=== PATIENT | female | born 1995 | race Caucasian/White ===

== ENCOUNTER → 2019-07-04 | Outpatient (REF) | payer OTHER ==
[~2019-07-04] MED LIST: ADVI200T PO; COLA100C5 PO; LABE20TAB PO; MAPA500T2 PO; PROC10CA PO; VITAPRTA PO
[2019-07-04 22:34] LABS: CHLAMYDIA DNA AMPLIFICATION NEGATIVE (NEGATIVE); GC DNA AMPLIFICATION NEGATIVE (NEGATIVE)
== END ==
LOC: M LAB REF 09:07
PROVIDERS: ATTEND Physician Assistant
DX: R30.0 Dysuria (principal)

== ENCOUNTER → 2019-07-10 | Outpatient (REF) | payer OTHER ==
[2019-07-11 14:07] LABS: CREATININE, URINE 305.7 mg/dL (20.0-300.0)
== END ==
LOC: M LAB REF 10:06
PROVIDERS: ATTEND Family Medicine
DX: F90.0 Attention-deficit hyperactivity disorder, predominantly inattentive type (principal)

== ENCOUNTER → 2019-12-22 | Outpatient (CLI) | payer OTHER ==
--- NOTE | 2019-12-22 13:27 | REP ---
A AP view for renal calculi: Comparisons are the supine abdomen dated 06/01/[address] dated 04/13/2060. Calcifications are identified projected over the kidneys. However, the renal fossa are obscured by bowel gas bilaterally. There are pelvic calcifications, likely phleboliths. The bowel gas pattern is normal. Skeletal structures are unremarkable. Impression: No renal calculi are identified, however, the kidneys are obscured by bowel gas. Electronically Signed by Jorge Mai MD 12/22/2019 01:19 P
[2019-12-22 13:52] LABS: BASO % 0.6 % (0.0-1.0); EOS # 0.2 10^3/uL (0.0-0.5); EOS % 2.5 % (0.0-3.0); HEMOGLOBIN 13.3 g/dl (12.0-15.5); LYMPH # 2.2 10^3/uL (1.5-5.0); LYMPH % 31.4 % (24.0-44.0); MEAN CORPUSCULAR HEMOGLOBIN 30.5 pg (27.0-33.0); MEAN CORPUSCULAR HGB CONC 33.3 g/dl (32.0-36.5); MEAN CORPUSCULAR VOLUME 91.7 fl (80.0-96.0); MONO # 0.6 10^3/uL (0.0-0.8); MONO % 8.7 % (0.0-5.0); NEUTROPHILS # 3.9 10^3/uL (1.5-8.5); NEUTROPHILS % 56.8 % (36.0-66.0); PLATELET COUNT, AUTOMATED 335 10^3/uL (150-450); RED BLOOD COUNT 4.36 10^6/uL (4.00-5.40); WHITE BLOOD COUNT 6.9 10^3/uL (4.0-10.0)
== END ==
LOC: M LAB 12:33
PROVIDERS: ATTEND Nurse Practitioner Family
DX: K62.5 Hemorrhage of anus and rectum (principal)

== ENCOUNTER → 2021-06-24 | Outpatient (REF) | payer OTHER ==
[2021-06-24 17:21] LABS: HEMATOCRIT 38.9 % (36.0-47.0); HEMOGLOBIN 13.2 g/dl (12.0-15.5); MEAN CORPUSCULAR HEMOGLOBIN 31.1 pg (27.0-33.0); MEAN CORPUSCULAR HGB CONC 33.9 g/dl (32.0-36.5); MEAN CORPUSCULAR VOLUME 91.7 fl (80.0-96.0); PLATELET COUNT, AUTOMATED 311 10^3/uL (150-450); RED BLOOD COUNT 4.24 10^6/uL (4.00-5.40)
[2021-06-24 18:40] LABS: HCG, SERUM QUANTITATIVE 27680 MIU/ML; HEPATITIS B SURFACE ANTIGEN NEGATIVE (NEGATIVE); HEPATITIS C VIRUS ABY INDEX 0.1 INDEX (<0.8); HIV 1&2 SCREEN CENTAUR NEGATIVE (NEGATIVE)
== END ==
LOC: M LAB REF 16:54
PROVIDERS: ATTEND Advanced Practice Midwife
DX: Z32.01 Encounter for pregnancy test, result positive (principal); O36.80X0 Pregnancy with inconclusive fetal viability, not applicable or unspecified

== ENCOUNTER → 2021-08-04 | Outpatient (REF) | payer OTHER | LOC: M LAB REF 11:19 | PROVIDERS: ATTEND Physician Assistant | DX: R30.0 Dysuria (principal) ==

== ENCOUNTER → 2021-11-11 | Outpatient (CLI) | payer BC ==
[2021-11-11 11:50] LABS: BASO % 0.2 % (0.0-1.0); EOS # 0.1 10^3/uL (0.0-0.5); EOS % 1.1 % (0.0-3.0); HEMATOCRIT 34.7 % (36.0-47.0); HEMOGLOBIN 11.5 g/dl (12.0-15.5); LYMPH # 1.6 10^3/uL (1.5-5.0); LYMPH % 18.7 % (24.0-44.0); MEAN CORPUSCULAR HEMOGLOBIN 31.8 pg (27.0-33.0); MEAN CORPUSCULAR HGB CONC 33.1 g/dl (32.0-36.5); MEAN CORPUSCULAR VOLUME 95.9 fl (80.0-96.0); MONO # 0.5 10^3/uL (0.0-0.8); MONO % 5.6 % (2.0-8.0); NEUTROPHILS # 6.3 10^3/uL (1.5-8.5); NEUTROPHILS % 73.6 % (36.0-66.0); PLATELET COUNT, AUTOMATED 300 10^3/uL (150-450); RED BLOOD COUNT 3.62 10^6/uL (4.00-5.40); WHITE BLOOD COUNT 8.5 10^3/uL (4.0-10.0)
[2021-11-11 12:28] LABS: ALT/SGPT 15 U/L (12-78); BILIRUBIN,TOTAL 0.4 MG/DL (0.2-1.0); CREATININE FOR GFR 0.57 MG/DL (0.55-1.30); GLOMERULAR FILTRATION RATE > 60.0 (>60); GLUCOSE CHALLENGE TEST 1 HOUR 88 MG/DL (LESS THAN 140); LDH LACTATE DEHYDROGENASE 144 U/L (84-246); URIC ACID 4.3 MG/DL (2.6-6.0)
== END ==
LOC: M WUC 08:49
PROVIDERS: ATTEND Advanced Practice Midwife
DX: O09.92 Supervision of high risk pregnancy, unspecified, second trimester (principal)
CPT/HCPCS: 36415; 82247; 82565; 82950; 83615; 84450; 84460; 84550; 85025; 86850; 86901; J2790

== ENCOUNTER → 2022-01-22 | Outpatient (REF) | payer BC ==
[2022-01-22 17:11] LABS: CREATININE,RANDOM URINE 32.7 MG/DL; TOTAL PROTEIN,RANDOM URINE 13.5 MG/DL (0.0-12.0)
== END ==
LOC: M LAB REF 16:03
PROVIDERS: ATTEND Advanced Practice Midwife
DX: O09.893 Supervision of other high risk pregnancies, third trimester (principal)

== ENCOUNTER → 2022-01-23 | Outpatient (REF) | payer BC ==
[~2022-01-23] MED LIST changes: +ASPI81CH33 PO
[2022-01-23 17:46] LABS: BASO # 0.1 10^3/uL (0.0-0.2); BASO % 0.6 % (0.0-1.0); EOS # 0.1 10^3/uL (0.0-0.5); EOS % 1.6 % (0.0-3.0); HEMATOCRIT 30.9 % (36.0-47.0); HEMOGLOBIN 10.1 g/dl (12.0-15.5); LYMPH # 1.4 10^3/uL (1.5-5.0); LYMPH % 15.3 % (24.0-44.0); MEAN CORPUSCULAR HEMOGLOBIN 30.6 pg (27.0-33.0); MEAN CORPUSCULAR HGB CONC 32.7 g/dl (32.0-36.5); MEAN CORPUSCULAR VOLUME 93.6 fl (80.0-96.0); MONO # 0.8 10^3/uL (0.0-0.8); MONO % 8.6 % (2.0-8.0); NEUTROPHILS # 6.6 10^3/uL (1.5-8.5); NEUTROPHILS % 73.2 % (36.0-66.0); PLATELET COUNT, AUTOMATED 328 10^3/uL (150-450); WHITE BLOOD COUNT 8.9 10^3/uL (4.0-10.0)
[2022-01-23 18:02] LABS: ALT/SGPT 16 U/L (12-78); BILIRUBIN,TOTAL 0.5 MG/DL (0.2-1.0); CREATININE FOR GFR 0.61 MG/DL (0.55-1.30); GLOMERULAR FILTRATION RATE > 60.0 (>60); LDH LACTATE DEHYDROGENASE 192 U/L (84-246); URIC ACID 5.9 MG/DL (2.6-6.0)
== END ==
LOC: M LAB REF 16:59
PROVIDERS: ATTEND Obstetrics & Gynecology
DX: O14.93 Unspecified pre-eclampsia, third trimester (principal)

== ENCOUNTER → 2022-01-24 | Outpatient (REF) | payer BC ==
[2022-01-24 18:53] LABS: CREATININE, URINE 35.1 MG/DL; URINE TOTAL PROTEIN 9.3 MG/DL (0-12)
[2022-01-24 20:28] LABS: CREATININE 24 HOUR, URINE 1202.1 MG/24HR (600-1800); TOTAL PROTEIN 24 HOUR URINE 318.5 MG/24HR (50-150)
== END ==
LOC: M LAB REF 13:52
PROVIDERS: ATTEND Obstetrics & Gynecology
DX: O14.93 Unspecified pre-eclampsia, third trimester (principal)

== ENCOUNTER 2022-01-26 09:23 | Outpatient (CLI) | payer BC ==
[~2022-01-26] VITALS: Ht 162.6 cm; Wt 82.3 kg
[~2022-01-26 09:23] MED LIST changes: -ASPI81CH33 PO
[2022-01-26 10:02] VITALS: BP 110/64
[2022-01-26 10:11] VITALS: BP 113/77
[2022-01-26 10:36] VITALS: BP 124/67
[2022-01-26] MEDS ORDERED: FIORICET TAB PO ONE (10:45)
[2022-01-26 10:46] VITALS: BP 117/61
[2022-01-26 10:56] VITALS: BP 107/60
[2022-01-26] MEDS ORDERED: ASPI81CH33 PO (11:00)
[2022-01-26] MEDS ORDERED: HOME MED LIST COMPLETE! XX SCH (11:05)
== END 2022-01-26 12:00 | disposition home or self-care (01) ==
LOC: M LDO 09:23
PROVIDERS: ATTEND Advanced Practice Midwife
DX: O60.03 Preterm labor without delivery, third trimester (principal); O26.893 Other specified pregnancy related conditions, third trimester; R51.9 Headache, unspecified; Z87.59 Personal history of other complications of pregnancy, childbirth and the puerperium; Z3A.36 36 weeks gestation of pregnancy
CPT/HCPCS: 59025; G0378; G0463

== ENCOUNTER 2022-02-02 11:41 | Outpatient (CLI) | payer BC ==
[~2022-02-02] VITALS: Ht 162.6 cm; Wt 83.4 kg
[~2022-02-02 11:41] MED LIST changes: +ASPI81CH33 PO
[2022-02-02 12:22] VITALS: BP 113/77
[2022-02-02 12:46] VITALS: BP 106/63
[2022-02-02] MEDS ORDERED: TUMS500C PO (12:53)
[2022-02-02 13:05] VITALS: BP 126/73
[2022-02-02 13:25] VITALS: BP 112/74
== END 2022-02-02 14:12 | disposition home or self-care (01) ==
LOC: M LDO 11:41
PROVIDERS: ATTEND Advanced Practice Midwife
DX: O26.893 Other specified pregnancy related conditions, third trimester (principal); R22.0 Localized swelling, mass and lump, head; Z3A.37 37 weeks gestation of pregnancy; Z87.59 Personal history of other complications of pregnancy, childbirth and the puerperium
CPT/HCPCS: 59025; G0378; G0463

== ENCOUNTER → 2022-02-04 | Outpatient (REF) | payer BC ==
[~2022-02-04] MED LIST changes: +TUMS500C PO
[2022-02-04 13:08] LABS: CREATININE,RANDOM URINE 52.8 MG/DL; TOTAL PROTEIN,RANDOM URINE 17.6 MG/DL (0.0-12.0)
== END ==
LOC: M LAB REF 12:16
PROVIDERS: ATTEND Advanced Practice Midwife
DX: O09.893 Supervision of other high risk pregnancies, third trimester (principal)

== ENCOUNTER → 2022-07-29 | Outpatient (REF) | payer BC ==
[2022-07-29 17:25] LABS: HEMATOCRIT 40.6 % (36.0-47.0); HEMOGLOBIN 13.1 g/dl (12.0-15.5); MEAN CORPUSCULAR HGB CONC 32.3 g/dl (32.0-36.5); PLATELET COUNT, AUTOMATED 396 10^3/uL (150-450); RED BLOOD COUNT 4.23 10^6/uL (4.00-5.40); WHITE BLOOD COUNT 6.7 10^3/uL (4.0-10.0)
[2022-07-29 18:08] LABS: ALBUMIN 4.3 GM/DL (3.2-5.2); ALT/SGPT 29 U/L (12-78); BILIRUBIN,TOTAL 0.8 MG/DL (0.2-1.0); BLOOD UREA NITROGEN 14 MG/DL (7-18); CARBON DIOXIDE LEVEL 27 MEQ/L (21-32); CHLORIDE LEVEL 105 MEQ/L (98-107); CREATININE FOR GFR 0.81 MG/DL (0.55-1.30); GLOMERULAR FILTRATION RATE > 60.0 (>60); GLUCOSE, FASTING 81 MG/DL (70-100); POTASSIUM SERUM 4.2 MEQ/L (3.5-5.1); SODIUM LEVEL 138 MEQ/L (136-145); TOTAL PROTEIN 7.4 GM/DL (6.4-8.2)
== END ==
LOC: M LABWUC 16:13
PROVIDERS: ATTEND Student in an Organized Health Care Education/Training Program
DX: Z02.1 Encounter for pre-employment examination (principal)

== ENCOUNTER → 2022-12-10 | Outpatient (REF) | LOC: M LABSMTC 09:26 | PROVIDERS: ATTEND Family Medicine | DX: Z11.52 Encounter for screening for COVID-19 (principal) ==

== ENCOUNTER → 2022-12-15 | Outpatient (REF) | LOC: M LABSMTC 10:26 | PROVIDERS: ATTEND Family Medicine | DX: Z11.52 Encounter for screening for COVID-19 (principal) ==

== ENCOUNTER → 2024-03-03 | Outpatient (REF) | payer OTHER, MEDICAID | LOC: M SFHCWAGY 10:32 | PROVIDERS: ATTEND Nurse Practitioner Family | DX: Z12.4 Encounter for screening for malignant neoplasm of cervix (principal) ==

== ENCOUNTER → 2024-07-19 | Outpatient (REF) | LOC: M EMP 08:35 | PROVIDERS: ATTEND Family Medicine | DX: Z11.52 Encounter for screening for COVID-19 (principal) ==

== ENCOUNTER → 2024-08-07 | Outpatient (REF) | LOC: M EMP 08:41 | PROVIDERS: ATTEND Family Medicine | DX: Z11.52 Encounter for screening for COVID-19 (principal) ==

== ENCOUNTER 2025-01-16 09:42 | Observation (INO) | payer OTHER ==
[~2025-01-16] VITALS: Ht 162.6 cm; Wt 64.8 kg
[2025-01-16] MEDS ORDERED: ACETAMINOPHEN 325 MG TAB PO PRN (09:50)
[2025-01-16 10:45] VITALS: BP 107/68; TEMP 97.2; O2SAT 99
[2025-01-16] MEDS: LACTATED RINGER'S 1000 ML IV STA (10:57)
[2025-01-16 11:03] LABS: HEMATOCRIT 38.3 % (36.0-47.0); HEMOGLOBIN 13.2 g/dl (12.0-15.5); MEAN CORPUSCULAR HGB CONC 34.5 g/dl (32.0-36.5); MEAN CORPUSCULAR VOLUME 89.9 fl (80.0-96.0); PLATELET COUNT, AUTOMATED 348 10^3/uL (150-450); RED BLOOD COUNT 4.26 10^6/uL (4.00-5.40); WHITE BLOOD COUNT 9.8 10^3/uL (4.0-10.0)
[2025-01-16 11:31] LABS: ALBUMIN 3.8 G/DL (3.2-5.2); ALKALINE PHOSPHATASE 48 U/L (35-104); ALT/SGPT 12 U/L (7.0-40); AST/SGOT < 8 U/L (<34); BILIRUBIN,TOTAL 1.1 MG/DL (0.3-1.2); BLOOD UREA NITROGEN 8 MG/DL (9-23); CALCIUM LEVEL 9.4 MG/DL (8.5-10.1); CARBON DIOXIDE LEVEL 28 MMOL/L (20-31); CHLORIDE LEVEL 103 MMOL/L (98-107); CREATININE FOR GFR 0.67 MG/DL (0.55-1.30); GLOMERULAR FILTRATION RATE > 60.0 (>60); GLUCOSE, FASTING 106 MG/DL (60-100); POTASSIUM SERUM 3.9 MMOL/L (3.5-5.1); SODIUM LEVEL 140 MMOL/L (136-145)
[2025-01-16] MEDS: LR 1,000 ML IV SCH (12:22)
[2025-01-16] MEDS: PROMETHAZINE 25MG/ML 1ML VIAL IV PRN (13:01)
[2025-01-16] MEDS: ONDANSETRON 4MG 2ML VIAL IV PRN (17:09)
[2025-01-16 18:00] VITALS: BP 107/69; TEMP 98.9; O2SAT 100
[2025-01-16] MEDS: PANTOPRAZOLE 40MG VIAL IV SCH (18:41)
[2025-01-17 06:00] VITALS: BP 99/55; TEMP 97.8; O2SAT 98
[2025-01-17 07:19] LABS: ALBUMIN 2.8 G/DL (3.2-5.2); ALKALINE PHOSPHATASE 36 U/L (35-104); ALT/SGPT < 9 U/L (7.0-40); AST/SGOT < 8 U/L (<34); BILIRUBIN,TOTAL 0.7 MG/DL (0.3-1.2); BLOOD UREA NITROGEN 6 MG/DL (9-23); CALCIUM LEVEL 8.1 MG/DL (8.5-10.1); CARBON DIOXIDE LEVEL 26 MMOL/L (20-31); CHLORIDE LEVEL 106 MMOL/L (98-107); CREATININE FOR GFR 0.65 MG/DL (0.55-1.30); GLOMERULAR FILTRATION RATE > 60.0 (>60); GLUCOSE, FASTING 85 MG/DL (60-100); SODIUM LEVEL 139 MMOL/L (136-145); TOTAL PROTEIN 5.2 G/DL (5.7-8.2)
[2025-01-17] MEDS ORDERED: OMEP40CA4 PO (07:34)
== END 2025-01-17 08:05 | disposition home or self-care (01) ==
LOC: M OBS 10:02
PROVIDERS: ADMIT Specialist; ATTEND Specialist
DX: O21.1 Hyperemesis gravidarum with metabolic disturbance (principal); Z3A.08 8 weeks gestation of pregnancy
CPT/HCPCS: 36415; 80053; 84443; 85027; 96361; 96374; 96375; 96376; J2405; J2470; J2550

== ENCOUNTER → 2025-01-23 | Outpatient (CLI) | payer OTHER ==
[~2025-01-23] MED LIST changes: +OMEP40CA4 PO
[2025-01-23 15:00] LABS: HEMATOCRIT 37.3 % (36.0-47.0); HEMOGLOBIN 12.6 g/dl (12.0-15.5); MEAN CORPUSCULAR HEMOGLOBIN 30.7 pg (27.0-33.0); MEAN CORPUSCULAR HGB CONC 33.8 g/dl (32.0-36.5); PLATELET COUNT, AUTOMATED 348 10^3/uL (150-450); WHITE BLOOD COUNT 9.4 10^3/uL (4.0-10.0)
[2025-01-23 15:06] LABS: LDH LACTATE DEHYDROGENASE 157 U/L (120-246)
[2025-01-23 15:07] LABS: ALT/SGPT 13 U/L (7.0-40); AST/SGOT < 8 U/L (<34); BILIRUBIN,TOTAL 0.7 MG/DL (0.3-1.2); CREATININE FOR GFR 0.61 MG/DL (0.55-1.30); GLOMERULAR FILTRATION RATE > 60.0 (>60)
[2025-01-23 15:32] LABS: HIV 1&2 SCREEN NEGATIVE (NEGATIVE)
[2025-01-23 15:41] LABS: HEPATITIS C VIRUS ABY INDEX 0.11 INDEX (<0.8)
[2025-01-23 15:44] LABS: URIC ACID 4.2 MG/DL (3.1-7.8)
[2025-01-23 17:37] LABS: TOTAL PROTEIN,RANDOM URINE 15.6 MG/DL (0.0-14.0)
[2025-01-23 17:42] LABS: CREATININE,RANDOM URINE 137.5 MG/DL
[2025-01-23 18:27] LABS: Trichomonas vaginalis (AMP) NOT DETECTED (NEGATIVE)
[2025-01-23 18:51] LABS: GC DNA AMPLIFICATION NEGATIVE (NEGATIVE)
== END ==
LOC: M PLALAB 11:17
PROVIDERS: ATTEND Advanced Practice Midwife
DX: Z34.81 Encounter for supervision of other normal pregnancy, first trimester (principal)

== ENCOUNTER → 2025-02-21 | Outpatient (REF) | LOC: M EMP 08:50 | PROVIDERS: ATTEND Family Medicine | DX: Z53.9 Procedure and treatment not carried out, unspecified reason (principal) ==

== ENCOUNTER → 2025-02-22 | Outpatient (REF) | LOC: M EMP 08:26 | PROVIDERS: ATTEND Family Medicine | DX: Z01.89 Encounter for other specified special examinations (principal) ==

== ENCOUNTER → 2025-03-27 | Outpatient (CLI) | payer OTHER | LOC: M WHC 06:37 | PROVIDERS: ATTEND Advanced Practice Midwife | DX: Z34.82 Encounter for supervision of other normal pregnancy, second trimester (principal); Z3A.19 19 weeks gestation of pregnancy ==

== ENCOUNTER → 2025-07-10 | Outpatient (CLI) | payer OTHER ==
[2025-07-10 16:08] LABS: PLATELET COUNT, AUTOMATED 321 10^3/uL (150-450)
[2025-07-10 16:18] LABS: TOTAL PROTEIN,RANDOM URINE 10.1 MG/DL (0.0-14.0)
[2025-07-10 16:22] LABS: LDH LACTATE DEHYDROGENASE 205 U/L (120-246)
[2025-07-10 16:23] LABS: ALT/SGPT 11 U/L (7.0-40); AST/SGOT 15 U/L (<34); CREATININE FOR GFR 0.58 MG/DL (0.55-1.30); GLOMERULAR FILTRATION RATE > 90.0 (>60)
== END ==
LOC: M PLALAB 14:25
PROVIDERS: ATTEND Advanced Practice Midwife
DX: O16.9 Unspecified maternal hypertension, unspecified trimester (principal); Z3A.00 Weeks of gestation of pregnancy not specified

== ENCOUNTER → 2025-07-10 | Outpatient (REF) | payer OTHER | LOC: M PLALAB 14:02 | PROVIDERS: ATTEND Advanced Practice Midwife | DX: Z34.93 Encounter for supervision of normal pregnancy, unspecified, third trimester (principal); Z87.59 Personal history of other complications of pregnancy, childbirth and the puerperium ==

== ENCOUNTER → 2025-07-13 | Outpatient (CLI) | payer OTHER | LOC: M WHC 12:34 | PROVIDERS: ATTEND Advanced Practice Midwife | DX: Z34.93 Encounter for supervision of normal pregnancy, unspecified, third trimester (principal); Z87.59 Personal history of other complications of pregnancy, childbirth and the puerperium ==

== ENCOUNTER 2025-07-24 08:12 | Outpatient (CLI) | payer OTHER ==
[~2025-07-24] VITALS: Ht 162.6 cm; Wt 83.1 kg
[2025-07-24] MEDS ORDERED: HOME MED LIST COMPLETE! XX SCH (08:35)
[2025-07-24] MEDS ORDERED: REGL10TA6 PO (08:35)
[2025-07-24 08:37] VITALS: BP 139/94
[2025-07-24] MEDS: BETAMETHASONE SOLUSPAN 6 MG/ML 5 ML VIAL IM ONE (08:40)
[2025-07-24 08:41] VITALS: BP 127/76
== END 2025-07-24 09:00 | disposition home or self-care (01) ==
LOC: M LDO 08:12
PROVIDERS: ATTEND Specialist
DX: O24.419 Gestational diabetes mellitus in pregnancy, unspecified control (principal); Z87.59 Personal history of other complications of pregnancy, childbirth and the puerperium; Z3A.36 36 weeks gestation of pregnancy
CPT/HCPCS: 59025; 96372; G0463; J0702

== ENCOUNTER 2025-07-25 08:31 | Outpatient (CLI) | payer OTHER ==
[~2025-07-25] VITALS: Ht 162.6 cm; Wt 82.8 kg
[~2025-07-25 08:31] MED LIST changes: +REGL10TA6 PO
[2025-07-25 08:46] VITALS: BP 117/67
[2025-07-25] MEDS: BETAMETHASONE SOLUSPAN 6 MG/ML 5 ML VIAL IM ONE (08:53)
[2025-07-25 09:00] VITALS: BP 105/67
== END 2025-07-25 08:50 | disposition home or self-care (01) ==
LOC: M LDO 08:31
PROVIDERS: ATTEND Advanced Practice Midwife
DX: O14.93 Unspecified pre-eclampsia, third trimester (principal); Z3A.35 35 weeks gestation of pregnancy
CPT/HCPCS: 59025; 96372; G0463; J0702

== ENCOUNTER → 2025-10-08 | Outpatient (CLI) | payer OTHER | LOC: M WHC 09:15 | PROVIDERS: ATTEND Specialist | DX: Z87.442 Personal history of urinary calculi (principal) ==